=== PATIENT | male | born 1995 | race Two or more races ===

== ENCOUNTER 2017-01-05 06:19 | Day surgery (SDC) | payer MEDICAID, OTHER ==
[~2017-01-05] VITALS: Ht 165.1 cm; Wt 65.9 kg
--- NOTE | ~2017-01-05 | OR ---
PATIENT'S NAME: JEZ GUIDO [facility] AGE: 21 Y [address] ROOM: [place] [address] LOCATION: [facility] – [place] ADMIT DATE: 01/05/2017 OR/Procedure Report DISCHARGE DATE: 01/05/2017 FAMILY PHYSICIAN: PHYSICIAN, NO ATTENDING PHYSICIAN: Andre Monzon SURGEON: Andre Monzon MD MIXING OPERATOR: DATE OF PROCEDURE: 01/05/2017 PREOPERATIVE DIAGNOSIS: End-stage renal disease. POSTOPERATIVE DIAGNOSIS: End-stage renal disease. PROCEDURE: Right arm brachiocephalic AV fistula. TOOTH CUTTER SPUR: OR staff. ANESTHESIA: General. ESTIMATED BLOOD LOSS: 10 mL. OPERATIVE FINDINGS: Good thrill and bruit. Strong radial and ulnar signal at the end of the case. DESCRIPTION OF PROCEDURE: The patient was brought into the operating room, placed under general anesthesia, and prepped and draped in a sterile manner. Preoperative time-out was performed. The patient received preoperative antibiotics. We made a standard incision 2 cm proximal to the antecubital fossa, dissected down the fascia, incised the fascia in a longitudinal manner, dissected out the brachial artery in a 360-degree fashion, and did the same thing for the cephalic vein, ligated and transected it distally. We gave 5000 units of heparin. We clamped proximally and distally on the artery, made an arteriotomy to a size of 4 mm. We then did a standard 6-0 Prolene anastomosis. We removed the clamps. There was excellent flow into the fistula. There was a strong radial and ulnar signal. This was all confirmed using Doppler. We reversed the heparin with protamine. We used thrombin locally in the wound. Deep layers were closed with 2-0 and 3-0 Vicryl. Skin was closed with running 4-0 Monocryl. The patient tolerated the procedure well, transferred to recovery room and home later that day. ANDRE MONZON MD PATIENT'S NAME: JEZ GUIDO [facility] AGE: 21 Y [address] ROOM: [place] [address] LOCATION: [facility] [place] ADMIT DATE: 01/05/2017 OR/Procedure Report DISCHARGE DATE: 01/05/2017 FAMILY PHYSICIAN: SARA BARNES ATTENDING PHYSICIAN: Andre Monzon/renae /[id number] d: 01/05/17 2316 t: 01/06/17 1002, OPERATIVE SUMMARY
[~2017-01-05 06:19] MED LIST: COREG25 MG PO; DELTASONE5 MG PO; NORVASC10 MG PO; ROCALTROL0.25 MCG PO
[2017-01-05 07:22] LABS: BASOPHIL # 0.1 K/uL (0.0-0.2); BASOPHIL % 1.1 %; EOSINOPHIL # 0.2 K/uL (0.0-0.5); EOSINOPHIL % 2.4 %; HEMATOCRIT 38.2 % (37.0-53.0); HEMOGLOBIN 12.6 g/dL (12.0-17.0); IMMATURE GRANULOCYTE # 0.1 K/uL (0.0-0.3); IMMATURE GRANULOCYTE % 0.6 %; LYMPHOCYTE # 2.4 K/uL (0.8-4.0); LYMPHOCYTE % 29.8 %; MCH 30.4 pg (27.0-34.0); MONOCYTE # 1.2 K/uL (0.0-1.0); MONOCYTE % 15.3 %; MPV 9.1 fl (9.4-12.4); NEUTROPHIL # (ANC) 4.1 K/uL (1.4-9.0); NEUTROPHIL % 50.8 %; NRBC % 0 /100WBC (0-0.00); PLATELET COUNT 191 K/uL (150-450); RBC 4.15 M/uL (4.00-6.00)
[2017-01-05 07:38] LABS: ALBUMIN 4.2 gm/dL (3.5-5.0); ANION GAP 17.7 (10.0-19.0); CALCIUM 7.8 mg/dL (8.5-10.5); POTASSIUM 3.7 mMol/L (3.7-5.1); TOTAL BILIRUBIN 0.4 mg/dL (0.0-1.5)
[2017-01-05 07:39] LABS: CREATININE 7.6 mg/dL (0.6-1.3)
[2017-01-05] MEDS ORDERED: NORCO 5-325 TA1 EACH PO (09:59)
== END 2017-01-05 11:00 | disposition disaster alternative care site (69) ==
LOC: GSDC 06:19 → GPOC 15:00
PROVIDERS: Surgery Vascular Surgery
PROC: 03170AD Bypass Right Brachial Artery to Upper Arm Vein with Autologous Arterial Tissue, Open Approach (ICD-10-PCS; principal; 2017-01-05)
DX: I12.0 Hypertensive chronic kidney disease with stage 5 chronic kidney disease or end stage renal disease (principal); N18.6 End stage renal disease; Z94.0 Kidney transplant status; Z79.52 Long term (current) use of systemic steroids; Z79.899 Other long term (current) drug therapy
CPT/HCPCS: J0690; J1644; J2720; J7030